=== PATIENT | female | born 1955 | race Caucasian/White ===

== ENCOUNTER 2017-08-24 06:30 | Emergency (ER) | payer BC ==
[2017-08-24 06:59] VITALS: BP 126/79
[2017-08-24] MEDS ORDERED: diphenhydrAMINE 25 MG Cap PO ONE (07:18)
--- NOTE | 2017-08-24 07:25 | EDM.PDOC ---
ED HPI GENERAL MEDICAL PROBLEM - General Chief Complaint: Skin Complaint Stated Complaint: SPREADING RASH Time Seen by Provider: 08/24/17 07:10 Source of Information: Reports: Patient, Old Records, RN History Limitations: Reports: No Limitations - History of Present Illness INITIAL COMMENTS - FREE TEXT/NARRATIVE: 61 yo female developed a rash in various places late morning yesterday. It seemed worse on her hands and L hip areas. No difficulty breathing or swallowing. No joint involvement. No hx of the same. Is on cetirizine 10 mg daily. Did not take any Benedryl. Is a little less prominent now on the hands than earlier. 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) (Usual meds including cetirizine) - Related Data Allergies Allergy/AdvReac Type Severity Reaction Status Date / Time Latex, Natural Rubber Allergy Severe Airway Verified 11/27/15 12:21 Tightness cefuroxime axetil Allergy Cannot Verified 11/27/15 12:21 [From Ceftin] Remember Penicillins Allergy Rash Verified 11/27/15 12:21 tetracycline [Tetracycline] Allergy Rash Verified 11/27/15 12:21 metals AdvReac Body Aches Uncoded 11/27/15 12:21 Home Meds: Home Meds Aspirin [Adult Low Dose Aspirin EC] 81 mg PO DAILY 07/27/13 [History] Fluticasone/Salmeterol [Advair 100-50] 1 puff INH DAILY 07/27/13 [History] Warfarin Sodium 6.75 mg PO ASDIRECTED 07/27/13 [History] Triamcinolone Acetonide [Nasacort AQ Frost] 1 spray MARTINEZ DAILY 12/07/13 [History] Albuterol Sulfate [Proair Hfa] 1 - 2 puff IH Q4H PRN 11/21/15 [History] Cetirizine HCl [Zyrtec] 10 mg PO DAILY 11/21/15 [History] Metoprolol Succinate [Toprol XL] 12.5 mg PO BEDTIME 11/21/15 [History] Past Medical History HEENT History: Reports: Impaired Vision, Sinusitis Other HEENT History: wears glasses Cardiovascular History: Reports: Afib, Arrhythmia, Blood Clots/VTE/DVT, Heart Failure, Heart Valve Replacement, SOB on Exertion Other Cardiovascular History: replaced mitral, repaired tricuspid, maze ablasion ; ligation left atria; 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 Respiratory History: Reports: Asthma Gastrointestinal History: Reports: None Genitourinary History: Reports: None 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: Endometriosis Neurological History: Reports: CVA Other Neuro History: antiphospholipid antibody syndrome Hematologic History: Reports: Anemia, Anticoagulation Therapy, Blood Transfusion (s), Other (See Below) Other Hematologic History: post surgical anemia; clotting disorder Dermatologic History: Reports: Cellulitis - Infectious Disease History Infectious Disease History: Reports: Chicken Pox, Measles, Mumps - Past Surgical History HEENT Surgical History: Reports: Adenoidectomy, Naso-Sinus Surgery, Tonsillectomy Cardiovascular Surgical History: Reports: Cardiac Ablation, Percutaneous Transluminal Angioplasty, Valve Replacement, Other (See Below) Respiratory Surgical History: Reports: Thoracentesis Other Respiratory Surgeries/Procedures: right plural effusion 11/22/15 GI Surgical History: Reports: Appendectomy, Colonoscopy Female Surgical History: Reports: Hysterectomy, Salpingo-Oophorectomy Neurological Surgical History: Reports: None Dermatological Surgical History: Reports: None Social & Family History - Family History Family Medical History: Noncontributory Oncologic: Reports: Esophageal, Leukemia, Ovarian, Prostate, Skin - Tobacco Use Smoking Status *Q: Never Smoker Second Hand Smoke Exposure: No - Caffeine Use Caffeine Use: Reports: None - Alcohol Use Days Per Week of Alcohol Use: 0 - Recreational Drug Use Recreational Drug Use: No ED ROS GENERAL - Review of Systems Review Of Systems: See Below Constitutional: Reports: No Symptoms HEENT: Reports: No Symptoms Respiratory: Reports: No Symptoms Cardiovascular: Reports: No Symptoms GI/Abdominal: Reports: No Symptoms : Reports: No Symptoms Musculoskeletal: Reports: No Symptoms Skin: Reports: Pruritis, Rash, Erythema Neurological: Reports: No Symptoms ED EXAM, SKIN/RASH Exam: See Below Exam Limited By: No Limitations General Appearance: Alert, WD/WN, No Apparent Distress Eye Exam: Bilateral Eye: Normal Inspection Ears: Normal External Exam, Normal Canal, Hearing Grossly Normal Nose: Normal Inspection, Normal Mucosa, No Blood Throat/Mouth: Normal Inspection, Normal Oropharynx, Normal Voice, No Airway Compromise Head: Atraumatic, Normocephalic Neck: Normal Inspection, Supple Respiratory/Chest: No Respiratory Distress, Lungs Clear, Normal Breath Sounds, No Accessory Muscle Use Cardiovascular: Regular Rate, Rhythm, No Edema Back Exam: Normal Inspection Extremities: Normal Inspection, Normal Range of Motion, Non-Tender, No Pedal Edema Neurological: Alert, Oriented, CN II-XII Intact, Normal Cognition, No Motor/ Sensory Deficits Psychiatric: Normal Affect, Normal Mood Skin: Warm, Dry, Intact, Erythema, Rash (R hand has some mild erythema to the dorsum of the MC joints, the L hip has some prominant erythematous vertical streaks that resemble dermatographism. ) Location, Skin: Upper Extremity, Right, Other (L hip) Characteristics: Erythematous Associated features: Swelling (L hip area only, not on the hands. There is a red welt-like lesion to the R forearm about 1x2 cm in size. ). No: Warmth, Tenderness Course - Vital Signs Text/Narrative:: Benedryl 25 mg po Last Recorded V/S: Last Vital Signs Temp 35.3 C 08/24/17 06:58 Pulse 81 08/24/17 06:58 Resp 15 08/24/17 06:58 BP 126/79 08/24/17 06:58 Pulse Ox 96 08/24/17 06:58 - Orders/Labs/Meds Meds: Medications Discontinued Medications Generic Name Dose Route Start Last Admin Trade Name Redq PRN Reason Stop Dose Admin Diphenhydramine HCl 25 mg 08/24/17 07:18 Benadryl PO 08/24/17 07:19 ONETIME ONE Departure - Departure Time of Disposition: 07:30 Disposition: Home, Self-Care 01 Condition: Good Clinical Impression: Urticaria - Discharge Information Referrals: Benny Moreau PA [Primary Care Provider] - Forms: ED Department Discharge
== END 2017-08-24 07:29 | disposition home or self-care (01) ==
LOC: JP.ED 06:30
DX: L50.9 Urticaria, unspecified (principal); I50.9 Heart failure, unspecified; J45.909 Unspecified asthma, uncomplicated; Z91.040 Latex allergy status; Z88.0 Allergy status to penicillin; Z88.1 Allergy status to other antibiotic agents; Z79.82 Long term (current) use of aspirin; Z79.899 Other long term (current) drug therapy
CPT/HCPCS: 99283; A9270

== ENCOUNTER 2021-11-20 20:06 | Emergency (ER) | payer BC ==
[2021-11-20] MEDS ORDERED: Sodium Chloride 0.9% 1,000 ML IV SCH (21:00)
[2021-11-20 21:38] LABS: ESTIMATED GFR 72 mL/min (>60)
[2021-11-20 22:10] LABS: CORONAVIRUS COVID-19 NAA NEGATIVE (NEGATIVE)
[2021-11-20 23:02] VITALS: BP 104/59; PULSE 89
== END 2021-11-20 23:49 | disposition home or self-care (01) ==
LOC: JP.ED 20:06
DX: B34.9 Viral infection, unspecified (principal); N39.8 Other specified disorders of urinary system; I48.91 Unspecified atrial fibrillation; I50.9 Heart failure, unspecified; M19.90 Unspecified osteoarthritis, unspecified site; Z20.822 Contact with and (suspected) exposure to COVID-19; Z79.82 Long term (current) use of aspirin; Z79.899 Other long term (current) drug therapy; Z79.01 Long term (current) use of anticoagulants; Z86.73 Personal history of transient ischemic attack (TIA), and cerebral infarction without residual deficits; Z91.040 Latex allergy status; Z88.1 Allergy status to other antibiotic agents; Z88.0 Allergy status to penicillin; Z91.048 Other nonmedicinal substance allergy status
CPT/HCPCS: 0241U; 36415; 74176; 80053; 81001; 83735; 84443; 84484; 85025; 85610; 96360; 96361; 99284; J7030

== ENCOUNTER 2022-03-09 20:47 | Emergency (ER) | payer OTHER ==
[2022-03-09 21:00] VITALS: BP 124/73; PULSE 82
== END 2022-03-09 22:04 | disposition home or self-care (01) ==
LOC: JP.ED 20:47
DX: Z79.01 Long term (current) use of anticoagulants (principal); Z86.73 Personal history of transient ischemic attack (TIA), and cerebral infarction without residual deficits; Z88.0 Allergy status to penicillin; Z91.040 Latex allergy status; Z91.048 Other nonmedicinal substance allergy status; Z88.1 Allergy status to other antibiotic agents
CPT/HCPCS: 36415; 85018; 85610; 99283

== ENCOUNTER → 2022-03-25 | Day surgery (SDC) | payer BC, OTHER ==
[~2022-03-25] MED LIST: Midazolam 1 MG/ML 2 ML SDV ONE; Propofol 200 MG/20 ML SDV ONE; fentaNYL 100 MCG/2 ML SDV ONE
== END ==
LOC: JP.SDS 06:00
PROVIDERS: ATTEND Family Medicine
DX: Z12.11 Encounter for screening for malignant neoplasm of colon (principal); J45.909 Unspecified asthma, uncomplicated; I48.91 Unspecified atrial fibrillation; K21.9 Gastro-esophageal reflux disease without esophagitis; R73.9 Hyperglycemia, unspecified; Z20.822 Contact with and (suspected) exposure to COVID-19; Z86.73 Personal history of transient ischemic attack (TIA), and cerebral infarction without residual deficits; Z98.890 Other specified postprocedural states
CPT/HCPCS: 45378; J2250; J2704; J3010

== ENCOUNTER 2023-03-05 21:05 | Emergency (ER) | payer MEDICARE, OTHER ==
[2023-03-05 21:22] VITALS: BP 119/70; PULSE 89
[2023-03-05 22:11] LABS: BASOPHILS PERCENT AUTO 0.4 % (0.1-1.3); HEMATOCRIT 36.5 % (34.3-46.0); HEMOGLOBIN 12.6 g/dL (11.2-15.5); LYMPHOCYTES ABSOLUTE AUTO 1.65 K/uL (0.8-3.3); LYMPHOCYTES PERCENT AUTO 33.8 % (11.4-47.7); MEAN CORPUSCULAR HEMOGLOBIN 29.3 pg (31.6-35.5); MEAN CORPUSCULAR HGB CONC 34.5 g/dL (31.6-35.5); MEAN CORPUSCULAR VOLUME 84.9 fL (81.4-99.0); MONOCYTES ABSOLUTE AUTO 0.42 K/uL (0.20-0.90); MONOCYTES PERCENT AUTO 8.6 % (3.3-12.6); NEUTROPHILS ABSOLUTE AUTO 2.79 K/uL (1.0-7.6); NEUTROPHILS PERCENT AUTO 57.2 % (40.0-78.1); PLATELET COUNT,PLT 204 K/uL (130-375); WHITE BLOOD CELL COUNT,WBC 4.9 K/uL (3.2-11.0)
[2023-03-05 22:13] LABS: BASOPHILS ABSOLUTE AUTO 0.02 K/uL (0.00-0.10)
[2023-03-05 22:27] LABS: ALBUMIN 3.5 g/dL (3.4-5.0); CALCIUM 8.5 mg/dL (8.5-10.1); CREATININE 0.9 mg/dL (0.6-1.0); EST CRCL DRUG DOSING (CG) 60.6 mL/min; MAGNESIUM 2.1 mg/dL (1.8-2.4); POTASSIUM,K 3.8 mmol/L (3.6-5.2)
[2023-03-05 22:30] LABS: ANION GAP 9.8 mmol/L (5.0-14.0)
== END 2023-03-05 23:02 | disposition home or self-care (01) ==
LOC: JP.ED 21:05
DX: R25.2 Cramp and spasm (principal); E86.0 Dehydration; I48.91 Unspecified atrial fibrillation; I50.9 Heart failure, unspecified; J45.909 Unspecified asthma, uncomplicated; Z79.01 Long term (current) use of anticoagulants; Z86.16 Personal history of COVID-19; Z91.040 Latex allergy status; Z88.1 Allergy status to other antibiotic agents; Z88.0 Allergy status to penicillin; Z91.048 Other nonmedicinal substance allergy status; Z79.899 Other long term (current) drug therapy
CPT/HCPCS: 36415; 80048; 82040; 82550; 83735; 84443; 85025; 99283